=== PATIENT | male | born 1960 | race Caucasian/White ===

== ENCOUNTER 2017-01-17 03:44 | Emergency (ER) | payer BC ==
--- NOTE | 2017-01-17 04:14 | ED ---
General Adult HPI - General Chief complaint: ENT Stated complaint: nose bleed Time Seen by Provider: 01/17/17 03:50 Source: patient, RN notes reviewed Mode of arrival: ambulatory - History of Present Illness Initial comments: This is a 56-year-old male who presents to the emergency department with epistaxis from the right near. Patient states she's had intermittent episodes since yesterday and tonight when it started bleeding again he thought he would come in and get it fixed. Patient states the bleeding is already slow down since he left his house. Patient denies any blood thinners. Patient denies any injury or trauma. Patient states about 8 years ago had a similar situation and he came to the emergency department and he believes he may have states that are cauterized. Patient denies any history of hypertension. Patient states he has had a little bit of an upper respiratory infection recently and that may have exacerbated the nosebleed. Patient denies any fever or chills. Patient denies any shortness of breath or difficulty breathing. Patient denies any lightheadedness or dizziness. Patient denies any palpitations chest pain. Review of Systems ROS Statement: Those systems with pertinent positive or pertinent negative responses have been documented in the HPI. ROS Other: All systems not noted in ROS Statement are negative. Past Medical History Past Medical History: No Reported History History of Any Multi-Drug Resistant Organisms: None Reported Past Surgical History: No Surgical Hx Reported Past Psychological History: No Psychological Hx Reported Smoking Status: Current every day smoker Past Alcohol Use History: None Reported Past Drug Use History: None Reported General Exam - General Exam Comments Initial Comments: GENERAL Patient is well-developed and well-nourished. Patient is in mild distress. EYES Patient's pupils are equal and round. Extraocular motion is intact ENT I do not see obvious site of bleeding at this time. SKIN Unremarkable NEURO The patient is alert and oriented 3 PYSCH Patient has normal interpersonal interactions. Course Vital Signs 01/17/17 01/17/17 03:50 04:41 Temperature 97.3 F L Pulse Rate 62 68 Respiratory 16 16 Rate Blood Pressure 155/81 133/76 O2 Sat by Pulse 98 98 Oximetry Disposition Clinical Impression: Epistaxis Disposition: HOME SELF-CARE Condition: Stable Instructions: Nosebleed (ED) Referrals: None,Stated [Primary Care Provider] - 1-2 days
[2017-01-17] MEDS ORDERED: OXYMETAZOLINE 0.05% NASL SPRAY 15 ML NASAL STA (04:15)
[2017-01-17 04:37] VITALS: RESP 16; TEMP 97.3
[2017-01-17 04:41] VITALS: BP 133/76; PULSE 68
== END 2017-01-17 04:42 | disposition home or self-care (01) ==
LOC: EC 03:44
DX: R04.0 Epistaxis (principal); F17.200 Nicotine dependence, unspecified, uncomplicated
CPT/HCPCS: 99283

== ENCOUNTER 2018-09-17 06:39 | Day surgery (SDC) | payer BC ==
[2018-09-15 09:58] VITALS: BMI 25.7
[~2018-09-17 06:39] MED LIST: LACTATED RINGERS 1,000 ML IV SCH
[2018-09-17 06:59] VITALS: TEMP 97.7
[2018-09-17] MEDS ORDERED: LACTATED RINGERS 1,000 ML IV ONE ×2 (07:07)
[2018-09-17] MEDS ORDERED: LIDOCAINE 1% INJ 10MG/ML (20 ML MDV) ONE (07:28)
[2018-09-17] MEDS ORDERED: PROPOFOL 10 MG/ML 20 ML VIAL IV ONE (07:28)
--- NOTE | 2018-09-17 07:34 | P.GSHP ---
History of Present Illness H&P Date: 09/17/18 Chief Complaint: Colon cancer screening Patient here today for colonoscopy. He has not had one previously. No bowel related complaints. No family history of colon cancer. Past Medical History Past Medical History: No Reported History History of Any Multi-Drug Resistant Organisms: None Reported Past Surgical History: Heart Catheterization Additional Past Surgical History / Comment(s): 2005 Past Anesthesia/Blood Transfusion Reactions: No Reported Reaction Smoking Status: Current every day smoker - Past Family History Father Family Medical History: Deep Vein Thrombosis (DVT) Medications and Allergies Home Medications Medication Instructions Recorded Confirmed Type No Known Home Medications 09/15/18 09/15/18 History Allergies Allergy/AdvReac Type Severity Reaction Status Date / Time No Known Allergies Allergy Verified 09/15/18 09:54 Surgical - Exam Vital Signs Temp Pulse Resp BP Pulse Ox 97.7 F 73 18 138/82 96 09/17/18 06:58 09/17/18 06:58 09/17/18 06:58 09/17/18 06:58 09/17/18 06:58 Physical exam: General: Well-developed, well-nourished HEENT: Normocephalic, sclerae nonicteric Abdomen: Nontender, nondistended Extremities: No edema Neuro: Alert and oriented Assessment and Plan (1) Colon cancer screening Narrative/Plan: We proceed with colonoscopy. Current Visit: Yes Status: Acute Code(s): Z12.11 - ENCOUNTER FOR SCREENING FOR MALIGNANT NEOPLASM OF COLON SNOMED Code(s): 828189108
--- NOTE | 2018-09-17 07:53 | P.PCN ---
Date of Procedure: 09/17/18 Procedure(s) Performed: PREOPERATIVE DIAGNOSIS: Colon cancer screening POSTOPERATIVE DIAGNOSIS: Sigmoid colon polyp 2, rectal polyp PROCEDURE: Colonoscopy with snare polypectomy ANESTHESIA: MAC SURGEON: Odin Palafox M.D. SPECIMENS: Polyps ENDOSCOPIC PROCEDURE: The patient was placed on the endoscopy table in the left decubitus position. The Olympus colonoscope was inserted into the anus and passed under direct visualization to the base of the cecum. The appendiceal orifice was visualized. From that point the scope was slowly withdrawn inspecting all surfaces carefully. There were no neoplastic inflammatory or polypoid lesions throughout the cecum, ascending, transverse and descending colon. In the sigmoid colon 2 small polyps are identified and removed using the snare with cautery technique. In the distal rectum another small polyp was identified and removed in a similar fashion. There was no visible diverticulosis. Digital rectal examination was normal. The patient was taken to the recovery room in stable condition per anesthesia guidelines. RECOMMENDATIONS: Increase fiber. Follow-up colonoscopy 5 years
[2018-09-17 08:11] VITALS: BP 102/64; PULSE 73; RESP 16
== END 2018-09-17 08:52 | disposition home or self-care (01) ==
LOC: ORWHC2ENDO 06:39
PROVIDERS: ATTEND Surgery
DX: Z12.11 Encounter for screening for malignant neoplasm of colon (principal); D12.5 Benign neoplasm of sigmoid colon; D12.8 Benign neoplasm of rectum; Z79.899 Other long term (current) drug therapy; F17.210 Nicotine dependence, cigarettes, uncomplicated
CPT/HCPCS: 88305; 45385; J2001; J2704

== ENCOUNTER 2019-06-22 07:03 | Emergency (ER) | payer BC ==
[2019-06-22 07:14] VITALS: TEMP 98
[2019-06-22] MEDS ORDERED: SODIUM CHLORIDE 0.9% 1,000 ML IV STA (07:15)
[2019-06-22] MEDS ORDERED: ONDANSETRON 4 MG/2 ML VIAL IVP STA (07:26)
[2019-06-22] MEDS ORDERED: KETOROLAC 30 MG/ML 1 ML VIAL IVP STA (07:26)
--- NOTE | 2019-06-22 07:30 | ED ---
General Adult HPI - General Chief complaint: Abdominal Pain Stated complaint: kidney stone Time Seen by Provider: 06/22/19 07:14 Source: patient Mode of arrival: ambulatory Limitations: no limitations - History of Present Illness Initial comments: Dictation was produced using brotips dictation software. please excuse any grammatical, word or spelling errors. Chief Complaint: 58-year-old male with past medical history of nephrolithiasis presents chief complaint of left flank pain. History of Present Illness: The 58-year-old male. He has past medical history nephrolithiasis. Patient presents today with 1 day of left sided flank pain. He describes the pain as initially colicky for several minutes with now constant left flank pain. He states the pain moves from his left CVA area down to his left lower flank radiating to his groin. Patient denies any fever, chills or night sweats. Discussed with some nausea however no vomiting. Patient was last diagnosed with a kidney stone approximately 5 years ago. Does not have established care with urologist in this area. Patient has no other medical problems. Patient takes no daily medications. The ROS documented in this emergency department record has been reviewed and confirmed by me. Those systems with pertinent positive or negative responses have been documented in the HPI. All other systems are other negative and/or noncontributory. PHYSICAL EXAM: General Impression: Alert and oriented x3, acute distress secondary to pain HEENT: Normocephalic atraumatic, extra-ocular movements intact, pupils equal and reactive to light bilaterally, mucous membranes moist. Cardiovascular: Heart regular rate and rhythm, S1&S2 audible, no murmurs, rubs or gallops Chest: Lungs clear to auscultation bilaterally, no rhonchi, no wheeze, no rales Abdomen: Bowel sounds present, abdomen soft, non-tender, non-distended, no organomegaly Musculoskeletal: Pulses present and equal in all extremities, no peripheral edema Motor: no focal deficits noted Neurological: CN II-XII grossly intact, no focal motor or sensory deficits noted Skin: Intact with no visualized rashes Psych: Normal affect and mood ED course: 58-year-old male presents with clinical presentation consistent with nephrolithiasis. Chief complaint today is left flank pain. Patient has a history of kidney stones. As upon arrival are within acceptable limits. He denies any comorbid conditions. Laboratory evaluation obtained. CBC, metabolic panel is unremarkable. No elevation of renal markers. Urinalysis obtained showing 44 rbc's. Kidneys urinary and bladder ultrasound was obtained showing mild hydronephrosis to the left kidney. Patient given intravenous fluids, IV analgesics and antiemetics. Patient reevaluated after short observation the ER with complete resolution of symptoms. At this point is unclear if he passed stone. Otherwise he is asymptomatic. Patient was discharged counseled on maintaining good hydration. Return parameters discussed. he is given referral to urology for outpatient management of nephrolithiasis. - Related Data Home Medications Medication Instructions Recorded Confirmed No Known Home Medications 09/15/18 06/22/19 Allergies Allergy/AdvReac Type Severity Reaction Status Date / Time No Known Allergies Allergy Verified 06/22/19 07:21 Review of Systems ROS Statement: Those systems with pertinent positive or pertinent negative responses have been documented in the HPI. ROS Other: All systems not noted in ROS Statement are negative. Past Medical History Past Medical History: No Reported History History of Any Multi-Drug Resistant Organisms: None Reported Past Surgical History: Heart Catheterization Additional Past Surgical History / Comment(s): 2005 Past Anesthesia/Blood Transfusion Reactions: No Reported Reaction Past Psychological History: No Psychological Hx Reported Smoking Status: Current every day smoker Past Alcohol Use History: None Reported Past Drug Use History: None Reported - Past Family History Father Family Medical History: Deep Vein Thrombosis (DVT) General Exam Limitations: no limitations Course Vital Signs 06/22/19 06/22/19 06/22/19 07:11 08:01 09:00 Temperature 98.0 F Pulse Rate 73 68 66 Respiratory 18 16 18 Rate Blood Pressure 164/77 119/79 111/75 O2 Sat by Pulse 97 99 97 Oximetry Medical Decision Making - Lab Data Result diagrams: 06/22/19 08:00 06/22/19 08:00 Lab Results 06/22/19 06/22/19 06/22/19 Range/Units 08:00 08:00 08:10 WBC 8.6 (3.8-10.6) k/uL RBC 4.92 (4.30-5.90) m/uL Hgb 15.2 (13.0-17.5) gm/dL Hct 46.2 (39.0-53.0) % MCV 93.8 (80.0-100.0) fL MCH 30.8 (25.0-35.0) pg MCHC 32.9 (31.0-37.0) g/dL RDW 15.0 (11.5-15.5) % Plt Count 194 (150-450) k/uL Neutrophils % 79 % Lymphocytes % 12 % Monocytes % 5 % Eosinophils % 2 % Basophils % 0 % Neutrophils # 6.8 (1.3-7.7) k/uL Lymphocytes # 1.1 (1.0-4.8) k/uL Monocytes # 0.5 (0-1.0) k/uL Eosinophils # 0.2 (0-0.7) k/uL Basophils # 0.0 (0-0.2) k/uL Sodium 140 (137-145) mmol/L Potassium 4.0 (3.5-5.1) mmol/L Chloride 109 H (98-107) mmol/L Carbon Dioxide 24 (22-30) mmol/L Anion Gap 7 mmol/L BUN 16 (9-20) mg/dL Creatinine 0.83 (0.66-1.25) mg/dL Est GFR (CKD-EPI)AfAm >90 (>60 ml/min/1.73 sqM) Est GFR (CKD-EPI)NonAf >90 (>60 ml/min/1.73 sqM) Glucose 106 H (74-99) mg/dL Calcium 9.0 (8.4-10.2) mg/dL Urine Color Yellow Urine Appearance Clear (Clear) Urine pH 5.5 (5.0-8.0) Ur Specific Emerson 1.022 (1.001-1.035) Urine Protein Trace H (Negative) Urine Glucose (UA) Negative (Negative) Urine Ketones Negative (Negative) Urine Blood Moderate H (Negative) Urine Nitrite Negative (Negative) Urine Bilirubin Negative (Negative) Urine Urobilinogen 2.0 (<2.0) mg/dL Ur Leukocyte Esterase Negative (Negative) Urine RBC 44 H (0-5) /hpf Urine WBC 3 (0-5) /hpf Urine Mucus Few H (None) /hpf Disposition Clinical Impression: Nephrolithiasis Disposition: HOME SELF-CARE Condition: Good Instructions (If sedation given, give patient instructions): Kidney Stones (ED) Is patient prescribed a controlled substance at d/c from ED?: No Referrals: Harvey Covarrubias MD [STAFF PHYSICIAN] - 1-2 days Time of Disposition: 09:12
[2019-06-22 08:22] LABS: African American GFR (CKD) >90 (>60 ml/min/1.73 sqM); Anion Gap 7 mmol/L; Blood Urea Nitrogen 16 mg/dL (9-20); Carbon Dioxide 24 mmol/L (22-30); Chloride 109 mmol/L (98-107); Glucose 106 mg/dL (74-99); Sodium 140 mmol/L (137-145)
[2019-06-22 08:24] LABS: Basophils % (A) 0 %; Eosinophils # (A) 0.2 k/uL (0-0.7); Eosinophils % (A) 2 %; HCT 46.2 % (39.0-53.0); HGB 15.2 gm/dL (13.0-17.5); Lymphocytes # (A) 1.1 k/uL (1.0-4.8); Lymphocytes % (A) 12 %; MCH 30.8 pg (25.0-35.0); MCHC 32.9 g/dL (31.0-37.0); MCV 93.8 fL (80.0-100.0); Mean Platelet Volume 7.2; Monocytes # (A) 0.5 k/uL (0-1.0); Monocytes % (A) 5 %; Neutrophils # (A) 6.8 k/uL (1.3-7.7); Neutrophils % (A) 79 %; Platelet Count 194 k/uL (150-450); RBC 4.92 m/uL (4.30-5.90); WBC 8.6 k/uL (3.8-10.6)
[2019-06-22 08:29] LABS: Appearance,Urine Clear (Clear); Bilirubin,Urine Negative (Negative); Blood,Urine Moderate (Negative); Color,Urine Yellow; Glucose,Urine (UA) Negative (Negative); Ketones,Urine Negative (Negative); Leukocyte Esterase,Urine Negative (Negative); Mucus,Urine Few /hpf; Nitrite,Urine Negative (Negative); PH, Urine 5.5 (5.0-8.0); Protein,Urine Trace (Negative); RBC,Urine 44 /hpf (0-5); Specific Gravity,Urine 1.022 (1.001-1.035); WBC,Urine 3 /hpf (0-5)
--- NOTE | 2019-06-22 08:55 | US ---
EXAMINATION TYPE: US kidneys/renal and bladder DATE OF EXAM: 06/22/2019 COMPARISON: NONE CLINICAL HISTORY: Pain. left flank pain, h/o renal stones, last one 5 years ago on the left EXAM MEASUREMENTS: Right Kidney: 11.0 x 5.4 x 4.5cm Left Kidney: 12.3 x 5.8 x 5.9cm Right Kidney: 4.2 x 4.1 x 2.4cm lateral cyst seen Left Kidney: renal pelvis fullness/hydronephrosis Bladder: patient just voided prior to exam There is no evidence for hydronephrosis on the right. No nephrolithiasis is seen. No suspicious mass es are identified. The urinary bladder is nondistended. IMPRESSION: 1. Very mild left-sided hydronephrosis. 2. Bosniak 1, benign-appearing right 4.2 cm exophytic renal cysts. 3. Suboptimal evaluation of the urinary bladder due to recent voiding.
[2019-06-22 09:09] VITALS: BP 111/75; PULSE 66; RESP 18
== END 2019-06-22 09:20 | disposition home or self-care (01) ==
LOC: EC 07:03
DX: N13.2 Hydronephrosis with renal and ureteral calculous obstruction (principal); F17.200 Nicotine dependence, unspecified, uncomplicated
CPT/HCPCS: 36415; 80048; 85025; 81001; 87086; 76770; 99284; 96374; 96375; 96361; J2405; J1885